=== PATIENT | male | born 1990 | race Two or more races ===

== ENCOUNTER → 2017-03-06 | Outpatient (CLI) | payer OTHER ==
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
== END ==
LOC: M PAIN 15:30
PROVIDERS: ATTEND Anesthesiology
DX: M51.16 Intervertebral disc disorders with radiculopathy, lumbar region (principal); M51.17 Intervertebral disc disorders with radiculopathy, lumbosacral region; M54.5 Low back pain; F17.210 Nicotine dependence, cigarettes, uncomplicated; Z79.899 Other long term (current) drug therapy

== ENCOUNTER → 2017-03-15 | Outpatient (CLI) | payer OTHER ==
[~2017-03-15] MED LIST: ISOVUE-M 300 61% 15ML VIAL (Q9967) As Ordered ONE; LIDOCAINE 1% SDV INJ 30 ML VIAL As Ordered ONE; diazePAM 5 MG TAB As Ordered ONE; methylPREDNISolone SUSP 40 MG/ML (DEPO-medrol) VIAL (J1030) As Ordered ONE; oxyCODONE 5MG TAB As Ordered ONE
--- NOTE | 2017-03-15 19:25 | REP ---
FLUOROSCOPIC GUIDED SPINAL INJECTION: The films were reviewed with Dr. Marr. The patient has a history of low back pain. The portable C-ARM was provided in the OR by Dr. Jackson for fluoroscopic guidance. 1 intraoperative fluoroscopic spot film was obtained using last image hold technology for needle placement verification for lumbar epidural injection The film was on the PACS system and is available for review. 7 seconds of fluoroscopic time was utilized for this procedure. Reviewed by LANDON Wilkerson 03/16/2017 05:14 PEdited and Signed by Kulwant Marr MD 03/16/2017 05:20 P
--- NOTE | 2017-04-03 00:50 | ECWPNPC ---
PATIENT NAME: NOEMI CASTANEDA : 1990 GENDER: MALE VISIT DATE: 03/15/2017 DISCHARGE DATE: 03/15/17 1316 VISIT LOCKED DATE TIME: PHYSICIAN: TAYLER CARTER RESOURCE: TAYLER CARTER REASON FOR APPOINTMENT 1. LESI HISTORY OF PRESENT ILLNESS HISTORY OF PRESENT ILLNESS: PAIN THE PATIENT DESCRIBES THE PAIN... FALL RISK SCREENING: SCREENING :FALL WITH INJURY IN THE PAST YEAR CURRENT MEDICATIONS TAKING GABAPENTIN 600 MG TABLET 1 TABLET ORALLY THREE TIMES A DAY, NOTES: 0500 TAKING LEXAPRO 20 MG TABLET 1 TAB ORALLY ONCE A DAY, NOTES: 0500 TAKING MAGNESIUM 250 MG TABLET 1 TABLET WITH A MEAL ORALLY ONCE A DAY, NOTES: 0500 MEDICATION LIST REVIEWED AND RECONCILED WITH THE PATIENT PAST MEDICAL HISTORY INSOMNIA LOW BACK PAIN TRANSITIONAL ANXIETY DISORDER ALLERGIES N.K.D.A. SOCIAL HISTORY GENERAL: TOBACCO USE ARE YOU A:CURRENT SMOKER HOW MANY CIGARETTES A DAY DO YOU SMOKE?6-10 HOW SOON AFTER YOU WAKE UP DO YOU SMOKE YOUR FIRST CIGARETTE?AFTER 60 MIN HOW OFTEN DO YOU SMOKE CIGARETTES?EVERY DAY PATIENT COUNSELED ON THE DANGERS OF TOBACCO USE AND URGED TO QUIT:03/15/2017 ARE YOU INTERESTED IN QUITTING?THINKING ABOUT QUITTING PLANNING ON STARTING NICOTENE PATCHES PREVIOUS QUIT ATTEMPTS?YES, MORE THAN 6 MONTHS AGO. COUNSELED THE PATIENT ON SMOKING CESSATION, EDUCATION [id number]/10/2017 ALCOHOL SCREENING DID YOU HAVE A DRINK CONTAINING ALCOHOL IN THE PAST YEAR?NO POINTS0 INTERPRETATIONNEGATIVE RECREATIONAL DRUG USE DRUG USE?NO CAFFEINE CAFFEINE USE?NO OCCUPATION: . DIET: REGULAR. EXERCISE: WALKS 3 TIMES A WEEK. EXERCISE IS LIMITED DUE TO BACK PAIN.. MARITAL STATUS: . OTHERS AT HOME: SPOUSE, CHILDREN. PETS: 2 DOGS. SHINTO [id number] CATHOLIC LANGUAGE LANGUAGES SPOKEN:SWEDISH EDUCATION LEVEL OF EDUCATION:COLLEGE LEARNING BARRIERS / SPECIAL NEEDS BARRIERS TO LEARNING?NO HEARING IMPAIRED?NO VISION IMPAIRED?NO COGNITIVELY IMPAIRED?NO READINESS TO LEARN?YES LEARNING PREFERENCES?YES :DEMONSTRATION/VERBAL INSTRUCTION LEARNING CAPABILITIES PRESENT?YES EMOTIONAL BARRIERS?NO SPECIAL DEVICES?NO INSURANCE CLAIMS ASSISTANT NEEDED?NO PAIN CLINIC PFS, CLERGY, PUBLIC HEALTH REFERRALS PFS REFERRAL NEEDED?NO CLERGY REFERRAL NEEDED?NO PUBLIC HEALTH REFERRAL NEEDED?NO HAS THE PATIENT BEEN EDUCATED REGARDING HIS/HER PLAN OF CARE?YES PLEASE DOCUMENT ANY ADDTIONAL DETAILS. PLAN OF CARE FOR THE PAIN CENTER REVIEWED WITH PATIENT AND HE VERBALIZED UNDERSTANDING. HAS THE PATIENT BEEN EDUCATED REGARDING PAIN, THE RISK FOR PAIN, THE IMPORTANCE OF EFFECTIVE PAIN MANAGEMENT, AND THE PAIN ASSESSMENT PROCESS?YES ADVANCE DIRECTIVES HEALTH CARE PROXY?YES NAME OF HCP HOLLY CASTANEDA CONTACT # FOR HCP [phone] DO YOU HAVE A COPY WITH YOU?NO POWER OF BALANCE STAFF INSPECTOR?YES PHONE # OF POA? SEE ABOVE NAME OF POA? -HOLLY DO YOU HAVE A COPY WITH YOU?NO HAVE YOU HAD A COPY OF ANY ADVANCED DIRECTIVE (LISTED ABOVE) ON A PREVIOUS MEDICAL RECORDS AT [facility]?NO DO YOU HAVE A DNR?NO WOULD YOU LIKE MORE INFORMATION?NO LIVING WILL?NO WOULD YOU LIKE MORE INFORMATION?NO DOMESTIC VIOLENCE DO YOU FEEL SAFE IN YOUR ENVIRONMENT?YES REVIEW OF SYSTEMS REVIEWED BY: PROVIDER: . CONSTITUTIONAL: ANY CHANGE IN YOUR MEDICAL CONDITION? NO . CHILLS NO . FEVER NO . INFECTION: DO YOU HAVE NEW INFECTIONS? NO . DO YOU HAVE HISTORY OF MRSA? NO . MUSCULOSKELETAL: ANY NEW PATTERNS OF PAIN OR NUMBNESS? NO . GASTROENTEROLOGY: ANY NEW CHANGE IN BOWEL CONTROL? NO . GENITOURINARY: ANY NEW CHANGE IN BLADDER CONTROL? NO . IS THERE A CHANCE YOU COULD BE ? NO . HEMATOLOGY/LYMPH: DO YOU TAKE ANY BLOOD THINNERS? (FOR EXAMPLE- COUMADIN, PLAVIX, AGGRENOX, PLATEL, PRADAXA, OR XARELTO) NO . WHEN WAS YOUR LAST DOSE? DATE: TIME: . NEUROLOGY: HAVE YOU FALLEN IN THE PAST 6 MONTHS? YES . ANY NEW EXTREMITY NUMBNESS OR WEAKNESS? NO . CARDIOLOGY: DO YOU HAVE A PACEMAKER OR DEFIBRILLATOR? NO . RESPIRATORY: HAVE YOU BEEN SICK IN THE PAST WEEK? NO . FEVER NO . FLU LIKE SYMPTOMS? NO . COUGH NO . INTEGUMENTARY: DO YOU HAVE ANY RASHES OR OPEN SORES? NO . ALLERGIC/IMMUNO: ARE YOU ALLERGIC TO SHELLFISH OR IV DYE? NO . ANY NEW ALLERGIES? NO . PSYCHIATRIC: DO YOU HAVE THOUGHTS OF HURTING YOURSELF OR SOMEONE ELSE? NO . ARE YOU ABUSED, NEGLECTED, OR IN AN UNSAFE ENVIRONMENT? NO . ENDOCRINOLOGY: ARE YOU DIABETIC? NO . OTHER: DO YOU NEED ANY PRESCRIPTIONS? YES . IF YES, PLEASE LIST: ____GABAPENTIN , LEXAPRO . ANY NEW PROBLEMS WITH YOUR MEDICATIONS? NO . WHEN DID YOU LAST EAT? ____ . WHEN DID YOU LAST DRINK? ____ . WHAT DID YOU LAST DRINK? ____ . NAME OF PERSON DRIVING YOU HOME? ____ . DO YOU HAVE ANY OTHER QUESTIONS OR CONCERNS NO . VITAL SIGNS WT 200 LBS, HT 75 IN, BMI 25.00 INDEX, BP 152/86 MM HG, HR 81 /MIN, RR 18 /MIN, TEMP 99.4 F, OXYGEN SAT % 99%, NA INITIALS AW 1119, REVIEWED BY: VD. ASSESSMENTS INTERVERTEBRAL DISC DISORDERS WITH RADICULOPATHY, LUMBOSACRAL REGION - M51.17 (PRIMARY) PROCEDURES PRE PROCEDURE DIAGNOSIS LUMBOSACRAL DISC DISORDER WITH RADICULOPATHY POST PROCEDURE DIAGNOSIS LUMBOSACRAL DISC DISORDER WITH RADICULOPATHY PROCEDURE LUMBAR EPIDURAL STEROID INJECTION UNDER FLUOROSCOPIC GUIDANCE SURGEON DR. TAYLER CARTER MUSIC JOURNALIST NONE ANESTHESIA LOCAL PRE PROCEDURE NOTE THE PATIENT HAS A HISTORY OF CHRONIC LOW BACK PAIN. I EVALUATE THE PATIENT AND REVIEWED THE CHART. I WENT OVER THE RISKS, ALTERNATIVES, AND BENEFITS ASSOCIATED WITH THIS PROCEDURE. THE PATIENT WOULD LIKE TO PROCEED AND GIVE CONSENT TO PERFORMED THE PROCEDURE. THE PATIENT DENIES UNEXPLAINABLE WEIGHT LOSS, FEVER, CHILLS, OR NEW CHANGES IN URINARY OR BOWEL CONTROL. DESCRIPTION OF PROCEDURE THE PATIENT WAS BROUGHT TO THE PROCEDURE ROOM AND PLACED IN THE PRONE POSITION. THE LUMBOSACRAL AREA WAS CLEANED WITH BETADINE SOLUTION AND DRAPED ASEPTICALLY. THE PROCEDURE WAS DONE UNDER STERILE CONDITIONS. I CHECKED LATERALITY AND THE LEVEL WHERE THE PROCEDURE WAS GOING TO BE PERFORMED WITH THE PATIENT AND THE SUPPORTING STAFF AT THE MOMENT OF THE TIME OUT IN THE PROCEDURE ROOM. UNDER FLUOROSCOPIC GUIDANCE, THE TARGET POINT WAS SELECTED AT THE INTERLAMINAR LEVEL OF L5-S1. LIDOCAINE WAS USED TO NUMB THE SKIN AND THE SUBCUTANEOUS TISSUE BELOW IT. EPIDURAL TUOHY NEEDLE, 17-GAUGE, WAS ADVANCED UNDER FLUOROSCOPIC GUIDANCE AND FOLLOWING PATIENT FEEDBACK UNTIL THE EPIDURAL SPACE WAS REACHED, 7 CM DEEP INTO THE SKIN BY THE LOSS OF RESISTANCE TECHNIQUE. ISOVUE M DYE 30%, 0.25 ML, WAS INJECTED SHOWING ADEQUATE SPREAD OF THE DYE. THEN, A SOLUTION OF 3 ML OF NORMAL SALINE WITH DEPO-MEDROL 60 MG WAS INJECTED SLOWLY FOLLOWING PATIENT FEEDBACK. THERE WAS NO EVIDENCE OF BLOOD, PARESTHESIA OR CEREBROSPINAL FLUID DURING THE PROCEDURE. THE PATIENT WAS SENT TO THE RECOVERY ROOM. THE PATIENT WAS MOVING THE EXTREMITIES AND DOING WELL. THERE WAS NO COMPLICATION DURING THE PROCEDURE. FLUOROSCOPY TIME WAS 7 SECONDS. POST PROCEDURE NOTE THE PATIENT WILL BE SEEN IN A FOLLOW UP IN THE NEXT FEW WEEKS. INSTRUCTIONS WERE GIVEN, QUESTIONS WERE ANSWERED, AND THE PATIENT EXPRESSED UNDERSTANDING AND AGREES WITH THE PLAN. I, PATRICIA BOWERS, DOCUMENTED THE ABOVE INFORMATION ACTING A SCRIBE FOR DR. CARTER. I HAVE REVIEWED THE ABOVE DOCUMENT, WRITTEN BY PATRICIA BOWERS SCRIBE AND I VERIFY THAT IT IS ACCURATE DIAGNOSTIC IMAGING [facility] FLUORO GUIDE SPINE INJECTION (PAIN)[id number] PROCEDURE CODES 01350 LUMBAR/SACRAL W/ IMAGING 6045F RADXPS IN END [id number] PXD DISPOSITION & COMMUNICATION FOLLOW UP 3 WEEKS ELECTRONICALLY SIGNED BY TAYLER CARTER MD ON 04/02/2017 AT 06:29 PM EDT DISCLAIMER : THIS IS A VISIT SUMMARY EXTRACTED FROM THE [employer] CHART. IT IS NOT A COPY OF THE [employer] PROGRESS NOTE. MTDD
== END | disposition home or self-care (01) ==
LOC: M PAIN 11:30
PROVIDERS: ATTEND Anesthesiology
DX: G89.29 Other chronic pain (principal); M51.17 Intervertebral disc disorders with radiculopathy, lumbosacral region; G47.00 Insomnia, unspecified; F41.8 Other specified anxiety disorders; Z79.899 Other long term (current) drug therapy; F17.210 Nicotine dependence, cigarettes, uncomplicated
CPT/HCPCS: 62323; J1030; Q9967

== ENCOUNTER → 2017-04-06 | Outpatient (CLI) | payer OTHER ==
--- NOTE | 2017-04-27 00:56 | ECWPNPC ---
PATIENT NAME: NOEMI CASTANEDA : 1990 GENDER: MALE VISIT DATE: 04/06/2017 DISCHARGE DATE: 04/06/17 1055 VISIT LOCKED DATE TIME: PHYSICIAN: SHARAD ROWE RESOURCE: SHARAD ROWE REASON FOR APPOINTMENT 1. POST PROCEDURE HISTORY OF PRESENT ILLNESS HISTORY OF PRESENT ILLNESS: PAIN THE PATIENT DESCRIBES THE PAIN... FALL RISK SCREENING: SCREENING :NO FALLS IN THE PAST YEAR TODAY'S VISIT: NOTES: S/P LESB COMPLETED ON 03/15/17. NOTES PAIN LEVEL 6/10 PRIOR TO INJECTION AND 2-3 FOR 1 WEEK POST PROCEDURE AND THEN SLOWLY RETURNED TO BASELINE AT 2 WEEKS. HAD BEEN ABLE TO BE MORE ACTIVE. IS HAVING SHOOTING PAIN RADIATING DOWN THE LEFT LEG. GABAPENTIN HAS HELPED WITH THE RADICULAR PAIN. PAIN IS AWAKENING IN NIGHT. CURRENT MEDICATIONS TAKING GABAPENTIN 800 MG TABLET 1 TABLET ORALLY FOUR TIMES DAILY TAKING LEXAPRO 20 MG TABLET 1 TAB ORALLY ONCE A DAY TAKING MAGNESIUM 250 MG TABLET 1 TABLET WITH A MEAL ORALLY ONCE A DAY MEDICATION LIST REVIEWED AND RECONCILED WITH THE PATIENT PAST MEDICAL HISTORY INSOMNIA LOW BACK PAIN TRANSITIONAL ANXIETY DISORDER ALLERGIES N.K.D.A. SURGICAL HISTORY BILAT EYE LASIK 2012 HOSPITALIZATION/MAJOR DIAGNOSTIC PROCEDURE HEAD INJURY 2012 REVIEW OF SYSTEMS REVIEWED BY: PROVIDER: SHARAD ROWE FLORICULTURIST . CONSTITUTIONAL: ANY CHANGE IN YOUR MEDICAL CONDITION? NO . CHILLS NO . FEVER NO . INFECTION: DO YOU HAVE NEW INFECTIONS? NO . DO YOU HAVE HISTORY OF MRSA? NO . MUSCULOSKELETAL: ANY NEW PATTERNS OF PAIN OR NUMBNESS? NO . GASTROENTEROLOGY: ANY NEW CHANGE IN BOWEL CONTROL? NO . GENITOURINARY: ANY NEW CHANGE IN BLADDER CONTROL? NO . IS THERE A CHANCE YOU COULD BE ? NO . HEMATOLOGY/LYMPH: DO YOU TAKE ANY BLOOD THINNERS? (FOR EXAMPLE- COUMADIN, PLAVIX, AGGRENOX, PLATEL, PRADAXA, OR XARELTO) NO . WHEN WAS YOUR LAST DOSE? DATE: TIME: . NEUROLOGY: HAVE YOU FALLEN IN THE PAST 6 MONTHS? YES, LEFT LEG PAIN AND LEFT FOOT GOES NUMB CAUSING PT TO FALL FREQUENTLY . ANY NEW EXTREMITY NUMBNESS OR WEAKNESS? NO . CARDIOLOGY: DO YOU HAVE A PACEMAKER OR DEFIBRILLATOR? NO . RESPIRATORY: HAVE YOU BEEN SICK IN THE PAST WEEK? NO . FEVER NO . FLU LIKE SYMPTOMS? NO . COUGH NO . INTEGUMENTARY: DO YOU HAVE ANY RASHES OR OPEN SORES? NO . ALLERGIC/IMMUNO: ARE YOU ALLERGIC TO SHELLFISH OR IV DYE? NO . ANY NEW ALLERGIES? NO . PSYCHIATRIC: DO YOU HAVE THOUGHTS OF HURTING YOURSELF OR SOMEONE ELSE? NO . ARE YOU ABUSED, NEGLECTED, OR IN AN UNSAFE ENVIRONMENT? NO . ENDOCRINOLOGY: ARE YOU DIABETIC? NO . OTHER: DO YOU NEED ANY PRESCRIPTIONS? NO . IF YES, PLEASE LIST: ____ . ANY NEW PROBLEMS WITH YOUR MEDICATIONS? NO . WHEN DID YOU LAST EAT? ____ . WHEN DID YOU LAST DRINK? ____ . WHAT DID YOU LAST DRINK? ____ . NAME OF PERSON DRIVING YOU HOME? ____ . DO YOU HAVE ANY OTHER QUESTIONS OR CONCERNS YES, PT WOULD LIKE TO DISCUSS RF AND WHAT TO DO INBETWEEN INJECTIONS FOR PAIN CONTROL . VITAL SIGNS WT 207 LBS, HT 75 IN, BMI 25.87 INDEX, BP 161/100 MM HG, HR 90 /MIN, RR 16 /MIN, TEMP 98.7 F, OXYGEN SAT % 98, REVIEWED BY: CITLALI. EXAMINATION GENERAL EXAMINATION: PSYCHALERT , ORIENTED X 3 , APPROPRIATE MOOD AND AFFECT . LUNGS:CLEAR TO AUSCULTATION BILATERALLY. HEART:HEART RATE REGULAR. MUSCULOSKELETAL:MUSCLE STRENGTH TESTING 5/5 BILATERAL LOWER EXTREMITIES. POINT TENDERNESS OVER LUMBAR SPINOUS PROCESSES AND ACROSS THE LUMBOSACRAL AXIS. ASSESSMENTS INTERVERTEBRAL DISC DISORDERS WITH RADICULOPATHY, LUMBAR REGION - M51.16 (PRIMARY) INTERVERTEBRAL DISC DISORDERS WITH RADICULOPATHY, LUMBOSACRAL REGION - M51.17 TREATMENT INTERVERTEBRAL DISC DISORDERS WITH RADICULOPATHY, LUMBAR REGION START PERCOCET TABLET, 10-325 MG, 1 TABLET NEEDED, ORALLY, EVERY 6 HRS PRN PAIN MDD=2, 30 DAY(S), 10, REFILLS 0 TRANSFORAMINAL LUMB SHARAD HAINES 04/06/2017 10:31:34 AM > LEFT TRANSFORAMINAL L4-5 AND L5-S1 CLINICAL NOTES: ISTOP REGISTRY REVIEWED (#[id number]). PREVENTIVE MEDICINE DISCUSSED TRANSFORMINAL AND PRE PROCEDURE CARE WITH PT EXPRESSING UNDERSTANDING. PROCEDURE CODES FA211 ESTABILISHED PATIENT [facility] FACILITY CHARGE DISPOSITION & COMMUNICATION FOLLOW UP DAVION SCHED FOR TF LEFT (REASON: CHECK AUTH FOR TRANSFORAMINAL EPIDURAL LEFT) ELECTRONICALLY SIGNED BY ENIO PONCE ON 04/26/2017 AT 09:30 PM EDT DISCLAIMER : THIS IS A VISIT SUMMARY EXTRACTED FROM THE [employer] CHART. IT IS NOT A COPY OF THE [employer] PROGRESS NOTE. FLEX
== END ==
LOC: M PAIN 10:00
PROVIDERS: ATTEND Nurse Practitioner Family
DX: M51.16 Intervertebral disc disorders with radiculopathy, lumbar region (principal); M51.17 Intervertebral disc disorders with radiculopathy, lumbosacral region; Z79.899 Other long term (current) drug therapy

== ENCOUNTER → 2017-04-23 | Outpatient (CLI) | payer OTHER ==
--- NOTE | 2017-04-23 12:19 | REP ---
Partial lumbar spine series: Three views . History: Injection procedure for pain. Nine seconds of fluoroscopy time is reported. Findings: A sequence of three fluoroscopically obtained last image hold procedural spot radiographs of the lumbar spine document needle position and contrast injection associated with injection procedure. Signed by Jordan Navarro MD 04/23/2017 12:11 P
--- NOTE | 2017-04-24 00:23 | ECWPNPC ---
PATIENT NAME: NOEMI CASTANEDA : 1990 GENDER: MALE VISIT DATE: 04/23/2017 DISCHARGE DATE: 04/23/17 1310 VISIT LOCKED DATE TIME: PHYSICIAN: TAYLER CARTER RESOURCE: TAYLER CARTER REASON FOR APPOINTMENT 1. L4-L5 HISTORY OF PRESENT ILLNESS HISTORY OF PRESENT ILLNESS: PAIN THE PATIENT DESCRIBES THE PAIN... FALL RISK SCREENING: SCREENING :NO FALLS IN THE PAST YEAR CURRENT MEDICATIONS TAKING GABAPENTIN 800 MG TABLET 1 TABLET ORALLY FOUR TIMES DAILY, NOTES: 04/23/17599 TAKING LEXAPRO 20 MG TABLET 1 TAB ORALLY ONCE A DAY, NOTES: 04/23/17599 TAKING MAGNESIUM 250 MG TABLET 1 TABLET WITH A MEAL ORALLY ONCE A DAY, NOTES: 04/22/17599 TAKING PERCOCET 10-325 MG TABLET 1 TABLET NEEDED ORALLY EVERY 6 HRS PRN PAIN MDD=2, NOTES: 04/20/17 TAKING PROTONIX 40 MG TABLET DELAYED RELEASE 1 TABLET ORALLY ONCE A DAY MEDICATION LIST REVIEWED AND RECONCILED WITH THE PATIENT PAST MEDICAL HISTORY INSOMNIA LOW BACK PAIN TRANSITIONAL ANXIETY DISORDER ALLERGIES N.K.D.A. SOCIAL HISTORY GENERAL: TOBACCO USE ARE YOU A:CURRENT SMOKER HOW MANY CIGARETTES A DAY DO YOU SMOKE?6-10 HOW SOON AFTER YOU WAKE UP DO YOU SMOKE YOUR FIRST CIGARETTE?AFTER 60 MIN HOW OFTEN DO YOU SMOKE CIGARETTES?EVERY DAY PATIENT COUNSELED ON THE DANGERS OF TOBACCO USE AND URGED TO QUIT:03/15/2017 ARE YOU INTERESTED IN QUITTING?THINKING ABOUT QUITTING PLANNING ON STARTING NICOTENE PATCHES PREVIOUS QUIT ATTEMPTS?YES, MORE THAN 6 MONTHS AGO. COUNSELED THE PATIENT ON SMOKING CESSATION, EDUCATION [id number]/10/2017 ALCOHOL SCREENING DID YOU HAVE A DRINK CONTAINING ALCOHOL IN THE PAST YEAR?NO POINTS0 INTERPRETATIONNEGATIVE RECREATIONAL DRUG USE DRUG USE?NO CAFFEINE CAFFEINE USE?NO OCCUPATION: . DIET: REGULAR. EXERCISE: WALKS 3 TIMES A WEEK. EXERCISE IS LIMITED DUE TO BACK PAIN.. MARITAL STATUS: . OTHERS AT HOME: SPOUSE, CHILDREN. PETS: 2 DOGS. ZOROASTRIANISM [id number] MANDAEN LANGUAGE LANGUAGES SPOKEN:MAURITIAN EDUCATION LEVEL OF EDUCATION:COLLEGE LEARNING BARRIERS / SPECIAL NEEDS BARRIERS TO LEARNING?NO HEARING IMPAIRED?NO VISION IMPAIRED?NO COGNITIVELY IMPAIRED?NO READINESS TO LEARN?YES LEARNING PREFERENCES?YES :DEMONSTRATION/VERBAL INSTRUCTION LEARNING CAPABILITIES PRESENT?YES EMOTIONAL BARRIERS?NO SPECIAL DEVICES?NO COMMUNITY HEALTH NURSE NEEDED?NO PAIN CLINIC PFS, CLERGY, PUBLIC HEALTH REFERRALS PFS REFERRAL NEEDED?NO CLERGY REFERRAL NEEDED?NO PUBLIC HEALTH REFERRAL NEEDED?NO HAS THE PATIENT BEEN EDUCATED REGARDING HIS/HER PLAN OF CARE?YES PLEASE DOCUMENT ANY ADDTIONAL DETAILS. PLAN OF CARE FOR THE PAIN CENTER REVIEWED WITH PATIENT AND HE VERBALIZED UNDERSTANDING. HAS THE PATIENT BEEN EDUCATED REGARDING PAIN, THE RISK FOR PAIN, THE IMPORTANCE OF EFFECTIVE PAIN MANAGEMENT, AND THE PAIN ASSESSMENT PROCESS?YES ADVANCE DIRECTIVES HEALTH CARE PROXY?YES NAME OF HCP HOLLY CASTANEDA CONTACT # FOR HCP [phone] DO YOU HAVE A COPY WITH YOU?NO POWER OF EXECUTIVE ADMINISTRATIVE ASST?YES PHONE # OF POA? SEE ABOVE NAME OF POA? -HOLLY DO YOU HAVE A COPY WITH YOU?NO HAVE YOU HAD A COPY OF ANY ADVANCED DIRECTIVE (LISTED ABOVE) ON A PREVIOUS MEDICAL RECORDS AT [facility]?NO DO YOU HAVE A DNR?NO WOULD YOU LIKE MORE INFORMATION?NO LIVING WILL?NO WOULD YOU LIKE MORE INFORMATION?NO DOMESTIC VIOLENCE DO YOU FEEL SAFE IN YOUR ENVIRONMENT?YES REVIEW OF SYSTEMS REVIEWED BY: PROVIDER: . CONSTITUTIONAL: ANY CHANGE IN YOUR MEDICAL CONDITION? NO . CHILLS NO . FEVER NO . INFECTION: DO YOU HAVE NEW INFECTIONS? NO . DO YOU HAVE HISTORY OF MRSA? NO . MUSCULOSKELETAL: ANY NEW PATTERNS OF PAIN OR NUMBNESS? NO . GASTROENTEROLOGY: ANY NEW CHANGE IN BOWEL CONTROL? NO . GENITOURINARY: ANY NEW CHANGE IN BLADDER CONTROL? YES, STATES HAS INCOMPLETE BLADDER EMPTYING AND DECREASED FORCE DURING URINATION. STATES HAS REPORTED TO PRIMARY CARE PROVIDER. REPORTED TO DR. CARTER. . IS THERE A CHANCE YOU COULD BE ? NO . HEMATOLOGY/LYMPH: DO YOU TAKE ANY BLOOD THINNERS? (FOR EXAMPLE- COUMADIN, PLAVIX, AGGRENOX, PLATEL, PRADAXA, OR XARELTO) NO . WHEN WAS YOUR LAST DOSE? DATE: TIME: . NEUROLOGY: HAVE YOU FALLEN IN THE PAST 6 MONTHS? NO . ANY NEW EXTREMITY NUMBNESS OR WEAKNESS? NO . CARDIOLOGY: DO YOU HAVE A PACEMAKER OR DEFIBRILLATOR? NO . RESPIRATORY: HAVE YOU BEEN SICK IN THE PAST WEEK? NO . FEVER NO . FLU LIKE SYMPTOMS? NO . COUGH NO . INTEGUMENTARY: DO YOU HAVE ANY RASHES OR OPEN SORES? YES, RASH TO RIGHT POSTERIOR AXILLA, PT STATES HE GEOT RASH IN [place] IN 2013, RASH COMES AND GOES, PUTS CREAM ON IT, NOT SURE OF NAME OF CREAM. . ALLERGIC/IMMUNO: ARE YOU ALLERGIC TO SHELLFISH OR IV DYE? NO . ANY NEW ALLERGIES? NO . PSYCHIATRIC: DO YOU HAVE THOUGHTS OF HURTING YOURSELF OR SOMEONE ELSE? NO . ARE YOU ABUSED, NEGLECTED, OR IN AN UNSAFE ENVIRONMENT? NO . ENDOCRINOLOGY: ARE YOU DIABETIC? NO . OTHER: DO YOU NEED ANY PRESCRIPTIONS? NO, PT STATES HE IS ON NEW B/P MED, NOT SURE OF NAME, HCTZ, NOT SURE OF DOSE . IF YES, PLEASE LIST: ____ . ANY NEW PROBLEMS WITH YOUR MEDICATIONS? NO . WHEN DID YOU LAST EAT? 04-22-18 PM . WHEN DID YOU LAST DRINK? 04-23-17 0730 . WHAT DID YOU LAST DRINK? WATER . NAME OF PERSON DRIVING YOU HOME? MARTA CASTANEDA . DO YOU HAVE ANY OTHER QUESTIONS OR CONCERNS NO . VITAL SIGNS WT 207 LBS, HT 75 IN, BMI 25.87 INDEX, BP 153/92 MM HG, HR 84 /MIN, RR 18 /MIN, TEMP 98.5 F, OXYGEN SAT % 96%, NA INITIALS SC 10:21, REVIEWED BY: CM. ASSESSMENTS INTERVERTEBRAL DISC DISORDER WITH RADICULOPATHY OF LUMBOSACRAL REGION - M51.17 (PRIMARY) PROCEDURES PRE PROCEDURE DIAGNOSIS LUMBAR DISC DISORDER WITH RADICULOPATHY POST PROCEDURE DIAGNOSIS LUMBAR DISC DISORDER WITH RADICULOPATHY PROCEDURE LUMBAR EPIDURAL STEROID INJECTION UNDER FLUOROSCOPIC GUIDANCE SURGEON DR. TAYLER CARTER ASSISTANT PASSENGER LOCOMOTIVE ENGINEER NONE ANESTHESIA LOCAL PRE PROCEDURE NOTE THE PATIENT HAS A HISTORY OF CHRONIC LOW BACK PAIN. I EVALUATE THE PATIENT AND REVIEWED THE CHART. I WENT OVER THE RISKS, ALTERNATIVES, AND BENEFITS ASSOCIATED WITH THIS PROCEDURE. THE PATIENT WOULD LIKE TO PROCEED AND GIVE CONSENT TO PERFORMED THE PROCEDURE. THE PATIENT DENIES UNEXPLAINABLE WEIGHT LOSS, FEVER, CHILLS, OR NEW CHANGES IN URINARY OR BOWEL CONTROL. DESCRIPTION OF PROCEDURE THE PATIENT WAS BROUGHT TO THE PROCEDURE ROOM AND PLACED IN THE PRONE POSITION. THE LUMBOSACRAL AREA WAS CLEANED WITH BETADINE SOLUTION AND DRAPED ASEPTICALLY. THE PROCEDURE WAS DONE UNDER STERILE CONDITIONS. I CHECKED LATERALITY AND THE LEVEL WHERE THE PROCEDURE WAS GOING TO BE PERFORMED WITH THE PATIENT AND THE SUPPORTING STAFF AT THE MOMENT OF THE TIME OUT IN THE PROCEDURE ROOM. UNDER FLUOROSCOPIC GUIDANCE, THE TARGET POINT WAS SELECTED AT THE INTERLAMINAR LEVEL OF L4-L5. LIDOCAINE WAS USED TO NUMB THE SKIN AND THE SUBCUTANEOUS TISSUE BELOW IT. EPIDURAL TUOHY NEEDLE, 17-GAUGE, WAS ADVANCED UNDER FLUOROSCOPIC GUIDANCE AND FOLLOWING PATIENT FEEDBACK UNTIL THE EPIDURAL SPACE WAS REACHED, 7 CM DEEP INTO THE SKIN BY THE LOSS OF RESISTANCE TECHNIQUE. ISOVUE M DYE 30%, 0.25 ML, WAS INJECTED SHOWING ADEQUATE SPREAD OF THE DYE. THEN, A SOLUTION OF 3 ML OF NORMAL SALINE WITH DEPO-MEDROL 60 MG WAS INJECTED SLOWLY FOLLOWING PATIENT FEEDBACK. THERE WAS NO EVIDENCE OF BLOOD, PARESTHESIA OR CEREBROSPINAL FLUID DURING THE PROCEDURE. THE PATIENT WAS SENT TO THE RECOVERY ROOM. THE PATIENT WAS MOVING THE EXTREMITIES AND DOING WELL. THERE WAS NO COMPLICATION DURING THE PROCEDURE. FLUOROSCOPY TIME WAS 9 SECONDS. POST PROCEDURE NOTE THE PATIENT WILL BE SEEN IN A FOLLOW UP IN THE NEXT FEW WEEKS. INSTRUCTIONS WERE GIVEN, QUESTIONS WERE ANSWERED, AND THE PATIENT EXPRESSED UNDERSTANDING AND AGREES WITH THE PLAN. I, PATRICIA BOWERS, DOCUMENTED THE ABOVE INFORMATION ACTING A SCRIBE FOR DR. CARTER. I HAVE REVIEWED THE ABOVE DOCUMENT, WRITTEN BY PATRICIA BARROSO AND I VERIFY THAT IT IS ACCURATE DIAGNOSTIC IMAGING [facility] FLUORO GUIDE SPINE INJECTION (PAIN)[id number] PROCEDURE CODES 33962 LUMBAR/SACRAL W/ IMAGING 6045F RADXPS IN END [id number] PXD DISPOSITION & COMMUNICATION FOLLOW UP 3 WEEKS ELECTRONICALLY SIGNED BY TAYLER CARTER MD ON 04/23/2017 AT 01:09 PM EDT DISCLAIMER : THIS IS A VISIT SUMMARY EXTRACTED FROM THE [employer] CHART. IT IS NOT A COPY OF THE [employer] PROGRESS NOTE. MTDD
== END ==
LOC: M PAIN 10:15
PROVIDERS: ATTEND Anesthesiology
DX: G89.29 Other chronic pain (principal); M51.17 Intervertebral disc disorders with radiculopathy, lumbosacral region; M54.5 Low back pain; F17.210 Nicotine dependence, cigarettes, uncomplicated; Z79.891 Long term (current) use of opiate analgesic; Z79.899 Other long term (current) drug therapy
CPT/HCPCS: 62323; J1030; Q9967

== ENCOUNTER → 2017-05-02 | Outpatient (CLI) | payer OTHER ==
--- NOTE | 2017-05-14 23:56 | ECWPNPC ---
PATIENT NAME: NOEMI CASTANEDA : 1990 GENDER: MALE VISIT DATE: 05/02/2017 DISCHARGE DATE: 05/02/17 1625 VISIT LOCKED DATE TIME: PHYSICIAN: TAYLER CARTER RESOURCE: TAYLER CARTER REASON FOR APPOINTMENT 1. BACK PAIN HISTORY OF PRESENT ILLNESS HISTORY OF PRESENT ILLNESS: PAIN THE PATIENT DESCRIBES THE PAIN... 27 YEAR OLD MALE PATIENT WITH HISTORY OF CHRONIC LOW BACK PAIN. PATIENT DESCRIBES THE PAIN ACHING, TENDER, AND SORE WITH A PAIN SCORE OF 7/10. PATIENT REPORTS HIS PAIN STARTED IN JUNE 2016 WITH NO TRAUMA BUT HAS GOTTEN PROGRESSIVELY WORSE. PATIENT RECEIVED A TRANSFORAMINAL EPIDURAL ON AND REPORTS HAVING MORE PAIN SINCE THE INJECTION. CURRENTLY THE PATIENT IS USING GABAPENTIN TO AID IN PAIN RELIEF AND STATES IT HELPS MILDLY WITH THE LEG PAIN. PATIENT REPORTS HE LIMPS DUE TO AVOIDING PAIN IN THE LEFT LEG. PATIENT DENIES UNEXPLAINABLE WEIGHT LOSS, FEVER, CHILLS, NEW CHANGES ON HIS URINARY OR BOWEL CONTROL. FALL RISK SCREENING: SCREENING :NO FALLS IN THE PAST YEAR CURRENT MEDICATIONS TAKING GABAPENTIN 800 MG TABLET 1 TABLET ORALLY FOUR TIMES DAILY TAKING LEXAPRO 20 MG TABLET 1 TAB ORALLY ONCE A DAY TAKING MAGNESIUM 250 MG TABLET 1 TABLET WITH A MEAL ORALLY ONCE A DAY TAKING PERCOCET 10-325 MG TABLET 1 TABLET NEEDED ORALLY EVERY 6 HRS PRN PAIN MDD=2 TAKING PROTONIX 40 MG TABLET DELAYED RELEASE 1 TABLET ORALLY ONCE A DAY TAKING TIZANIDINE HCL 4 MG TABLET 1 TABLET NEEDED ORALLY THREE TIMES A DAY TAKING PROPRANOLOL HCL 80 MG CAPSULE EXTENDED RELEASE ORALLY TAKING HYDROCHLOROTHIAZIDE 25 MG TABLET 1 TABLET IN THE MORNING ORALLY ONCE A DAY TAKING AMBIEN CR 12.5 MG TABLET EXTENDED RELEASE 1 TABLET AT BEDTIME NEEDED ORALLY ONCE A DAY MEDICATION LIST REVIEWED AND RECONCILED WITH THE PATIENT PAST MEDICAL HISTORY INSOMNIA LOW BACK PAIN TRANSITIONAL ANXIETY DISORDER ALLERGIES N.K.D.A. REVIEW OF SYSTEMS REVIEWED BY: PROVIDER: TAYLER CARTER MD . CONSTITUTIONAL: ANY CHANGE IN YOUR MEDICAL CONDITION? NO . CHILLS NO . FEVER NO . INFECTION: DO YOU HAVE NEW INFECTIONS? NO . DO YOU HAVE HISTORY OF MRSA? NO . MUSCULOSKELETAL: ANY NEW PATTERNS OF PAIN OR NUMBNESS? YES, PAIN IN LOWER BACK IS WORSE SINCE INJECTION. TRIED ACCUPUNCTURE ON SUNDAY. NO HELP.PAIN IS SHOOTING DOWN LEFT LEG. . GASTROENTEROLOGY: ANY NEW CHANGE IN BOWEL CONTROL? NO . GENITOURINARY: ANY NEW CHANGE IN BLADDER CONTROL? NO . IS THERE A CHANCE YOU COULD BE ? NO . HEMATOLOGY/LYMPH: DO YOU TAKE ANY BLOOD THINNERS? (FOR EXAMPLE- COUMADIN, PLAVIX, AGGRENOX, PLATEL, PRADAXA, OR XARELTO) NO . WHEN WAS YOUR LAST DOSE? DATE: TIME: . NEUROLOGY: HAVE YOU FALLEN IN THE PAST 6 MONTHS? NO . ANY NEW EXTREMITY NUMBNESS OR WEAKNESS? NO . CARDIOLOGY: DO YOU HAVE A PACEMAKER OR DEFIBRILLATOR? NO . RESPIRATORY: HAVE YOU BEEN SICK IN THE PAST WEEK? NO . FEVER NO . FLU LIKE SYMPTOMS? NO . COUGH NO . INTEGUMENTARY: DO YOU HAVE ANY RASHES OR OPEN SORES? NO . ALLERGIC/IMMUNO: ARE YOU ALLERGIC TO SHELLFISH OR IV DYE? NO . ANY NEW ALLERGIES? NO . PSYCHIATRIC: DO YOU HAVE THOUGHTS OF HURTING YOURSELF OR SOMEONE ELSE? NO . ARE YOU ABUSED, NEGLECTED, OR IN AN UNSAFE ENVIRONMENT? NO . ENDOCRINOLOGY: ARE YOU DIABETIC? NO . OTHER: DO YOU NEED ANY PRESCRIPTIONS? NO . IF YES, PLEASE LIST: ____ . ANY NEW PROBLEMS WITH YOUR MEDICATIONS? NO . WHEN DID YOU LAST EAT? ____ . WHEN DID YOU LAST DRINK? ____ . WHAT DID YOU LAST DRINK? ____ . NAME OF PERSON DRIVING YOU HOME? ____ . DO YOU HAVE ANY OTHER QUESTIONS OR CONCERNS NO . VITAL SIGNS WT 207 LBS, HT 75 IN, BMI 25.87 INDEX, BP 158/103 MM HG, HR 95 /MIN, RR 18 /MIN, TEMP 98.7 F, OXYGEN SAT % 94, NA INITIALS MP 1519, REVIEWED BY: CMBP IS HIGH, PATIENT STATES [facility] [place] [facility] BP MEDS LAST WEEKPT IS EXTREMLY ANXIOUS. CM. EXAMINATION : PATIENT IS ALERT O X 3 AND COOPERATIVE. TENDERNESS IN THE LOWER BACK AND PARASPINAL MUSCLE GROUP. LIMPING FROM LEG LEFT. LEFT LEG WEAKER THEN THE RIGHT AT EXTENSION AND FLEXION. PATIENT ABLE TO FLEX BACK 55 DEGREES AND UNABLE TO EXTEND DUE TO PAIN. MRI DONE ON 01/03/17 OF THE LUMBAR SPINE SHOWS DISC BULGES AT L4-L5 AND L5-S1 WITH NEUROFORAMINAL NARROWING AT L5. ASSESSMENTS INTERVERTEBRAL DISC DISORDERS WITH RADICULOPATHY, LUMBAR REGION - M51.16 (PRIMARY) INTERVERTEBRAL DISC DISORDER WITH RADICULOPATHY OF LUMBOSACRAL REGION - M51.17 TREATMENT INTERVERTEBRAL DISC DISORDERS WITH RADICULOPATHY, LUMBAR REGION REFILL PERCOCET TABLET, 10-325 MG, 1 TABLET NEEDED, ORALLY, EVERY 6 HRS PRN PAIN MDD=2, 7 DAY(S), 10, REFILLS 0 NOTES: WE DISCUSSED SEVERAL ISSUES WITH MR. CASTANEDA' PAIN MANAGEMENT CASE. AT THIS TIME I WOULD LIKE THE PATIENT OT CONTINUE TO USE PERCOCET FOR THE SOMATIC PAIN. I WOULD LIKE THE PATIENT TO SOMA AT NIGHT FOR THE MUSCLE SPASMS AND TORADOL FOR THE INFLAMMATION. PATIENT WAS ADVISED TO STOP THE MEDICATION IF HE HAS ANY ADVERSE SIDE EFFECTS HE WAS ADVISED TO STOP THE MEDICATION. AT THIS TIME WE WILL NOT MOVE FORWARD WITH ANY INTERVENTIONS. PATIENT WILL FOLLOW UP IN 1 WEEK TO DISCUSS HOW THE MEDICATION WORKED FOR HIM. INSTRUCTIONS WERE GIVEN, QUESTIONS WERE ANSWERED, PATIENT REPORTS UNDERSTANDING AND AGREES WITH THE PLAN. I, PATRICIA BOWERS, DOCUMENTED THE ABOVE INFORMATION ACTING A SCRIBE FOR DR. CARTER. I HAVE REVIEWED THE ABOVE DOCUMENT, WRITTEN BY PATRICIA BARROSO AND I VERIFY THAT IT IS ACCURATE. OTHERS START KETOROLAC TROMETHAMINE TABLET, 10 MG, 1 TABLET WITH FOOD OR MILK NEEDED, ORALLY FOR PAIN, EVERY 6 HRS MDD4, 5 DAY(S), 20, REFILLS 0 START CARISOPRODOL TABLET, 350 MG, 1 TABLET NEEDED, ORALLY FOR SPASMS AND PAIN, BEFORE BEDTIME MDD1, 7 DAY(S), 7, REFILLS 0 PROCEDURE CODES FA211 ESTABILISHED PATIENT [facility] FACILITY CHARGE G8427 DOC MEDS VERIFIED W/PT OR RE G8730 PAIN ASSESS POS TOOL F/U PLAN DOC DISPOSITION & COMMUNICATION FOLLOW UP 1 WEEK ELECTRONICALLY SIGNED BY TAYLER CARTER MD ON 05/14/2017 AT 03:34 PM EDT DISCLAIMER : THIS IS A VISIT SUMMARY EXTRACTED FROM THE [employer] CHART. IT IS NOT A COPY OF THE [employer] PROGRESS NOTE. MTDD
== END ==
LOC: M PAIN 15:15
PROVIDERS: ATTEND Anesthesiology
DX: M51.16 Intervertebral disc disorders with radiculopathy, lumbar region (principal); M51.17 Intervertebral disc disorders with radiculopathy, lumbosacral region; G89.29 Other chronic pain; M54.5 Low back pain; Z79.891 Long term (current) use of opiate analgesic; Z79.899 Other long term (current) drug therapy

== ENCOUNTER → 2017-06-22 | Outpatient (CLI) | payer OTHER ==
--- NOTE | 2017-06-25 00:13 | ECWPNPC ---
PATIENT NAME: NOEMI CASTANEDA : 1990 GENDER: MALE VISIT DATE: 06/22/2017 DISCHARGE DATE: 06/22/17 1151 VISIT LOCKED DATE TIME: PHYSICIAN: SHARAD ROWE RESOURCE: SHARAD ROWE REASON FOR APPOINTMENT 1. POST PROCEDURE HISTORY OF PRESENT ILLNESS HISTORY OF PRESENT ILLNESS: PAIN THE PATIENT DESCRIBES THE PAIN... FALL RISK SCREENING: SCREENING :NO FALLS IN THE PAST YEAR TODAY'S VISIT: NOTES: RATES PAIN TODAY 4/10. IS NOTE NEW PAIN IN UPPER LEVELS OF LOW BACK, AND IS NOTING PAIN TO RIGHT HIP. JONAH HAS BEEN LOWERED . TORADOL BOTHERS STOMACH.HAS COMPLETED ABX FOR PROSTATE AND HAS NO PELVIC TENDERNESS. STILL HAS SOME ISSUES WITH EMPTYING BLADDER NOTES SOME CONSTIPATION. . IS CURRENTLY USING HOT TUB, DOING TREADMILL SLEEP IS DISRUPTED WITH SEVERE JOLTING PAIN. . CURRENT MEDICATIONS TAKING PERCOCET 10-325 MG TABLET 1 TABLET NEEDED ORALLY EVERY 8 HRS PRN PAIN MDD=2 TAKING GABAPENTIN 800 MG TABLET 1 TABLET ORALLY FOR PAIN BID MDD2 TAKING MAGNESIUM 250 MG TABLET 1 TABLET WITH A MEAL ORALLY ONCE A DAY TAKING PROTONIX 40 MG TABLET DELAYED RELEASE 1 TABLET ORALLY ONCE A DAY TAKING PROPRANOLOL HCL 120 MG CAPSULE EXTENDED RELEASE ORALLY ONCE DAILY TAKING ADDERALL XR 20 MG CAPSULE EXTENDED RELEASE 24 HOUR 1 CAPSULE IN THE MORNING ORALLY ONCE A DAY TAKING LORAZEPAM 0.5 MG TABLET 1 TABLET NEEDED ORALLY EVERY 6 HRS NOT-TAKING KETOROLAC TROMETHAMINE 10 MG TABLET 1 TABLET WITH FOOD OR MILK NEEDED ORALLY FOR PAIN EVERY 6 HRS MDD3 DISCONTINUED LEXAPRO 20 MG TABLET 1 TAB ORALLY ONCE A DAY DISCONTINUED AMBIEN CR 12.5 MG TABLET EXTENDED RELEASE 1 TABLET AT BEDTIME NEEDED ORALLY ONCE A DAY DISCONTINUED CIPRO 250 MG TABLET 1 TAB(S) ORALLY EVERY 12 HRS DISCONTINUED TIZANIDINE HCL 4 MG TABLET 1 TABLET NEEDED ORALLY THREE TIMES A DAY DISCONTINUED HYDROCHLOROTHIAZIDE 25 MG TABLET 1 TABLET IN THE MORNING ORALLY ONCE A DAY DISCONTINUED CARISOPRODOL 350 MG TABLET 1 TABLET NEEDED ORALLY FOR SPASMS AND PAIN BEFORE BEDTIME MDD1 MEDICATION LIST REVIEWED AND RECONCILED WITH THE PATIENT PAST MEDICAL HISTORY INSOMNIA LOW BACK PAIN TRANSITIONAL ANXIETY DISORDER ALLERGIES N.K.D.A. SOCIAL HISTORY GENERAL: TOBACCO USE ARE YOU A:CURRENT SMOKER ARE YOU INTERESTED IN QUITTING?THINKING ABOUT QUITTING PLANNING ON STARTING NICOTENE PATCHES PREVIOUS QUIT ATTEMPTS?YES, MORE THAN 6 MONTHS AGO. COUNSELED THE PATIENT ON SMOKING CESSATION, EDUCATION [id number]/10/2017 HOW MANY CIGARETTES A DAY DO YOU SMOKE?6-10 HOW SOON AFTER YOU WAKE UP DO YOU SMOKE YOUR FIRST CIGARETTE?AFTER 60 MIN HOW OFTEN DO YOU SMOKE CIGARETTES?EVERY DAY PATIENT COUNSELED ON THE DANGERS OF TOBACCO USE AND URGED TO QUIT:03/15/2017 ALCOHOL SCREENING DID YOU HAVE A DRINK CONTAINING ALCOHOL IN THE PAST YEAR?NO POINTS0 INTERPRETATIONNEGATIVE RECREATIONAL DRUG USE DRUG USE?NO CAFFEINE CAFFEINE USE?NO OCCUPATION: . DIET: REGULAR. EXERCISE: WALKS 3 TIMES A WEEK. EXERCISE IS LIMITED DUE TO BACK PAIN.. MARITAL STATUS: . OTHERS AT HOME: SPOUSE, CHILDREN. PETS: 2 DOGS. BUDDHIST [id number] SABIANIST LANGUAGE LANGUAGES SPOKEN:YORUBA EDUCATION LEVEL OF EDUCATION:COLLEGE LEARNING BARRIERS / SPECIAL NEEDS BARRIERS TO LEARNING?NO HEARING IMPAIRED?NO VISION IMPAIRED?NO COGNITIVELY IMPAIRED?NO READINESS TO LEARN?YES LEARNING PREFERENCES?YES :DEMONSTRATION/VERBAL INSTRUCTION LEARNING CAPABILITIES PRESENT?YES EMOTIONAL BARRIERS?NO SPECIAL DEVICES?NO FORMING OPERATOR NEEDED?NO PAIN CLINIC PFS, CLERGY, PUBLIC HEALTH REFERRALS PFS REFERRAL NEEDED?NO CLERGY REFERRAL NEEDED?NO PUBLIC HEALTH REFERRAL NEEDED?NO HAS THE PATIENT BEEN EDUCATED REGARDING HIS/HER PLAN OF CARE?YES PLEASE DOCUMENT ANY ADDTIONAL DETAILS. PLAN OF CARE FOR THE PAIN CENTER REVIEWED WITH PATIENT AND HE VERBALIZED UNDERSTANDING. HAS THE PATIENT BEEN EDUCATED REGARDING PAIN, THE RISK FOR PAIN, THE IMPORTANCE OF EFFECTIVE PAIN MANAGEMENT, AND THE PAIN ASSESSMENT PROCESS?YES ADVANCE DIRECTIVES HEALTH CARE PROXY?YES NAME OF HCP HOLLY CASTANEDA CONTACT # FOR HCP [phone] DO YOU HAVE A COPY WITH YOU?NO POWER OF ADJUNCT PROFESSOR OF ENGLISH?YES PHONE # OF POA? SEE ABOVE NAME OF POA? -HOLLY DO YOU HAVE A COPY WITH YOU?NO HAVE YOU HAD A COPY OF ANY ADVANCED DIRECTIVE (LISTED ABOVE) ON A PREVIOUS MEDICAL RECORDS AT [facility]?NO DO YOU HAVE A DNR?NO WOULD YOU LIKE MORE INFORMATION?NO LIVING WILL?NO WOULD YOU LIKE MORE INFORMATION?NO DOMESTIC VIOLENCE DO YOU FEEL SAFE IN YOUR ENVIRONMENT?YES REVIEW OF SYSTEMS REVIEWED BY: PROVIDER: SHARAD KOCH . CONSTITUTIONAL: ANY CHANGE IN YOUR MEDICAL CONDITION? NO . CHILLS NO . FEVER NO . INFECTION: DO YOU HAVE NEW INFECTIONS? NO . DO YOU HAVE HISTORY OF MRSA? NO . MUSCULOSKELETAL: ANY NEW PATTERNS OF PAIN OR NUMBNESS? YES, IS EXPERIENCING MORE PAIN IN RIGHT HIP REGION. IS CONCERNED. . GASTROENTEROLOGY: ANY NEW CHANGE IN BOWEL CONTROL? NO . GENITOURINARY: ANY NEW CHANGE IN BLADDER CONTROL? NO . IS THERE A CHANCE YOU COULD BE ? NO . HEMATOLOGY/LYMPH: DO YOU TAKE ANY BLOOD THINNERS? (FOR EXAMPLE- COUMADIN, PLAVIX, AGGRENOX, PLATEL, PRADAXA, OR XARELTO) NO . WHEN WAS YOUR LAST DOSE? DATE: TIME: . NEUROLOGY: HAVE YOU FALLEN IN THE PAST 6 MONTHS? YES, NONE SINCE 3 MONTHS. GABAPENTIN SEEMS TO BE HELPING. . ANY NEW EXTREMITY NUMBNESS OR WEAKNESS? NO . CARDIOLOGY: DO YOU HAVE A PACEMAKER OR DEFIBRILLATOR? NO . RESPIRATORY: HAVE YOU BEEN SICK IN THE PAST WEEK? NO . FEVER NO . FLU LIKE SYMPTOMS? NO . COUGH NO . INTEGUMENTARY: DO YOU HAVE ANY RASHES OR OPEN SORES? NO . ALLERGIC/IMMUNO: ARE YOU ALLERGIC TO SHELLFISH OR IV DYE? NO . ANY NEW ALLERGIES? NO . PSYCHIATRIC: DO YOU HAVE THOUGHTS OF HURTING YOURSELF OR SOMEONE ELSE? NO . ARE YOU ABUSED, NEGLECTED, OR IN AN UNSAFE ENVIRONMENT? NO . ENDOCRINOLOGY: ARE YOU DIABETIC? NO . OTHER: DO YOU NEED ANY PRESCRIPTIONS? YES, GABAPENTIN, CHANGE PAIN MEDS IF POSSIBLE . IF YES, PLEASE LIST: ____ . ANY NEW PROBLEMS WITH YOUR MEDICATIONS? YES, TORADOL MAKES UPSET STOMACH IT HELPS, OXYCODONE DOESNT LAST LONG ENOUGH. . WHEN DID YOU LAST EAT? ____ . WHEN DID YOU LAST DRINK? ____ . WHAT DID YOU LAST DRINK? ____ . NAME OF PERSON DRIVING YOU HOME? ____ . DO YOU HAVE ANY OTHER QUESTIONS OR CONCERNS YES, WOULD LIKE ANOTHER MRI FOR RIGHT SIDE, PAIN IS INCREASING. IS CONCERNED. . VITAL SIGNS WT 208.2 LBS, HT 75 IN, BMI 26.02 INDEX, BP 139/86 MM HG, HR 101 /MIN, RR 18 /MIN, TEMP 99.1 F, OXYGEN SAT % 97%, NA INITIALS SC 10:17, REVIEWED BY: CM. EXAMINATION GENERAL EXAMINATION: PSYCHALERT , ORIENTED X 3 , , APPROPRIATE MOOD AND AFFECT , ANXIOUS, SPEACH RAPID. LUNGS:CLEAR TO AUSCULTATION BILATERALLY. HEART:HEART RATE REGULAR. MUSCULOSKELETAL:MUSCLE STRENGTH TESTING 5/5 BILATERAL LOWER EXTREMITIES. POINT TENDERNESS OVER LUMBAR SPINOUS PROCESSES AND RIGHT SIJ. FEW TRIGGER POINTS IDENTIFIED OVER LUMBAR PARAVERTEBRAL MUSCLES. POSTURE UPRIGHT. GAIT NONANTALGIC. INTERMITTENT MYOCLONIC JERKS OBSERVED IN LOWER EXTREMITIES. ASSESSMENTS INTERVERTEBRAL DISC DISORDERS WITH RADICULOPATHY, LUMBAR REGION - M51.16 (PRIMARY) INTERVERTEBRAL DISC DISORDER WITH RADICULOPATHY OF LUMBOSACRAL REGION - M51.17 TREATMENT INTERVERTEBRAL DISC DISORDERS WITH RADICULOPATHY, LUMBAR REGION REFILL PERCOCET TABLET, 10-325 MG, 1 TABLET NEEDED, ORALLY, EVERY 8 HRS PRN PAIN MDD=2, 30 DAY(S), 60, REFILLS 0 REFILL GABAPENTIN TABLET, 800 MG, 1 TABLET, ORALLY FOR PAIN, BID MDD2, 30 DAY(S), 60, REFILLS 1 START CARISOPRODOL TABLET, 350 MG, 1 TABLET NEEDED, ORALLY, BEFORE BEDTIME, 30 DAY(S), 30, REFILLS 1 NOTES: BIOFREEZE TO MID AND LOW BACKINTRALAMINAL EPDIDURAL LUMBAR. CLINICAL NOTES: ISTOP REGISTRY REVIEWED AND DEMNOSTRATES COMPLLIANCE. (REF # [id number]) BRINGS IN MEDICATIONS WHICH IS APPROPRIATE FOR WHAT WAS DISPENSED. RECENT URINE TOXICOLOGY REVIEWED. NO UNAUTHORIZED MEDICATIONS. NO ILLICIT SUBSTANCES AND PRESCRIBED MEDICATIONS WERE PRESENT. PREVENTIVE MEDICINE REVIEWED PRE PROCEDURE CARE WITH PT EXPRESSING UNDERSTANDING. PROCEDURE CODES [id number] ESTABILISHED PATIENT [facility] FACILITY CHARGE DISPOSITION & COMMUNICATION FOLLOW UP AFTER INJECTION (REASON: CHECK AUTH FOR TRANS/LESB) ELECTRONICALLY SIGNED BY ENIO PONCE ON 06/24/2017 AT 02:33 PM EST DISCLAIMER : THIS IS A VISIT SUMMARY EXTRACTED FROM THE TM CHART. IT IS NOT A COPY OF THE TM PROGRESS NOTE. MTDD
== END ==
LOC: M PAIN 10:00
PROVIDERS: ATTEND Nurse Practitioner Family
DX: G89.29 Other chronic pain (principal); M51.16 Intervertebral disc disorders with radiculopathy, lumbar region; M51.17 Intervertebral disc disorders with radiculopathy, lumbosacral region; G47.00 Insomnia, unspecified; F17.210 Nicotine dependence, cigarettes, uncomplicated; M25.559 Pain in unspecified hip; Z79.899 Other long term (current) drug therapy